=== PATIENT | male | born 1980 | race Caucasian/White ===

== ENCOUNTER 2018-02-27 20:34 | Emergency (ER) | payer MEDICAID ==
[~2018-02-27] VITALS: Ht 175.3 cm; Wt 72.8 kg
[2018-02-27 20:37] VITALS: BP 124/79
[2018-02-27] MEDS ORDERED: KETOROLAC 30 MG/1 ML ONE (21:20)
[2018-02-27] MEDS ORDERED: KETOROLAC 30 MG/1 ML IM ONE (21:30)
== END 2018-02-27 21:43 | disposition home or self-care (01) ==
LOC: ED 21:05
DX: S43.402A Unspecified sprain of left shoulder joint, initial encounter (principal); X58.XXXA Exposure to other specified factors, initial encounter; Y93.89 Activity, other specified; Y92.89 Other specified places as the place of occurrence of the external cause; Y99.8 Other external cause status
CPT/HCPCS: 73030; 96372; 99284; J1885

== ENCOUNTER 2018-09-28 23:31 | Emergency (ER) | payer MEDICAID ==
[~2018-09-28] VITALS: Ht 175.3 cm; Wt 74.5 kg
--- NOTE | 2018-09-29 00:24 | NUR ---
MRI SCREENING SENT
--- NOTE | 2018-09-29 00:59 | NUR ---
PT TO MRI
--- NOTE | 2018-09-29 01:25 | NUR ---
PT BACK FROM MRI AWAITING READ AND ERP RECHECK.
[2018-09-29 01:47] VITALS: BP 107/54
== END 2018-09-29 02:36 | disposition home or self-care (01) ==
LOC: ED 23:48
DX: G60.0 Hereditary motor and sensory neuropathy (principal); Z88.8 Allergy status to other drugs, medicaments and biological substances
CPT/HCPCS: 72148; 99284

== ENCOUNTER 2020-09-14 22:36 | Emergency (ER) | payer SELFPAY ==
[~2020-09-14] VITALS: Ht 175.3 cm; Wt 78.7 kg
[2020-09-14 22:42] VITALS: BP 106/62
[2020-09-14] MEDS ORDERED: CIPROFLOXACIN 500 MG TABLET ONE (23:13)
[2020-09-14] MEDS ORDERED: DIPH,PERTUSS(ACELL),TET VAC/PF 0.5 ML IM-VACC ONE ×2 (23:13→23:30)
[2020-09-14] MEDS ORDERED: CIPROFLOXACIN 500 MG TABLET PO ONE (23:30)
== END 2020-09-15 00:02 | disposition home or self-care (01) ==
LOC: ED 23:41
DX: S91.331A Puncture wound without foreign body, right foot, initial encounter (principal); W45.0XXA Nail entering through skin, initial encounter; Y93.89 Activity, other specified; Y92.69 Other specified industrial and construction area as the place of occurrence of the external cause; Y99.0 Civilian activity done for income or pay
CPT/HCPCS: 90471; 90715; 99283